=== PATIENT | male | born 1985 | race African-American/Black ===

== ENCOUNTER 2017-04-01 20:43 | Emergency (ER) | payer MEDICAID ==
[~2017-04-01] VITALS: Ht 185.4 cm; Wt 163.3 kg
[2017-04-01] MEDS ORDERED: Ketorolac 60mg Inj IM ONE (21:00)
[2017-04-01] MEDS ORDERED: IBUPROFEN600 MG ORAL (21:00)
[2017-04-01 21:30] VITALS: BP 132/87
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
--- NOTE | 2017-04-02 12:47 | Diagnostic Imaging Report ---
Indication: Pain Findings: 3 views of the right shoulder were obtained. No acute fractures, malalignment, erosions or periostitis are identified. Bone mineralization is within normal limits. Soft tissues are unremarkable. Impression: Negative examination of the shoulder.
== END 2017-04-01 21:30 | disposition home or self-care (01) ==
LOC: EMR 21:12
DX: S46.911A Strain of unspecified muscle, fascia and tendon at shoulder and upper arm level, right arm, initial encounter (principal); X50.0XXA Overexertion from strenuous movement or load, initial encounter; Y93.9 Activity, unspecified; Y92.9 Unspecified place or not applicable
CPT/HCPCS: 96372; 99283